=== PATIENT | female | born 1995 | race Caucasian/White ===

== ENCOUNTER 2020-04-07 13:53 | Emergency (ER) | payer OTHER ==
[2020-04-07 14:15] VITALS: TEMP 98; BMI 32.3
[2020-04-07] MEDS ORDERED: DIPHTH,PERTUSS(ACELL),TET 0.5 ML DISP.SYRIN IM ONE (14:52)
[2020-04-07 15:57] VITALS: BP 133/78; PULSE 85
== END 2020-04-07 15:57 | disposition home or self-care (01) ==
LOC: JER 13:53
PROC: 3E0234Z Introduction of Serum, Toxoid and Vaccine into Muscle, Percutaneous Approach (ICD-10-PCS; principal; 2020-04-07)
PROC: 0HQFXZZ Repair Right Hand Skin, External Approach (ICD-10-PCS; 2020-04-07)
DX: S61.316A Laceration without foreign body of right little finger with damage to nail, initial encounter (principal); R05 Cough; Z03.818 Encounter for observation for suspected exposure to other biological agents ruled out
CPT/HCPCS: 90715; 99284-25; C9803; U0003